=== PATIENT | male | born 1970 | race Two or more races ===

== ENCOUNTER 2018-03-30 16:34 | Inpatient (IN) | payer MEDICAID, OTHER ==
[~2018-03-30] VITALS: Ht 180.3 cm; Wt 87.0 kg
[2018-03-30] MEDS ORDERED: LORazepam 2 MG TABLET PO ONE (19:15)
[2018-03-30] MEDS ORDERED: HALOPERIDOL 5 MG TABLET PO ONE (19:15)
[2018-03-30] MEDS ORDERED: ZOLPIDEM TARTRATE 10 MG TABLET PO PRN (19:15)
[2018-03-30] MEDS ORDERED: DiphenhydrAMINE HCL 25 MG CAPSULE PO ONE (19:15)
[2018-03-30] MEDS ORDERED: LORazepam 2 MG TABLET PO PRN (19:15)
[2018-03-30] MEDS ORDERED: HALOPERIDOL 5 MG TABLET PO PRN (19:15)
[2018-03-30] MEDS ORDERED: HALOPERIDOL LACTATE 5 MG/ML VIAL IM ONE (19:30)
[2018-03-30] MEDS ORDERED: DiphenhydrAMINE HCL 50 MG/ML VIAL IM ONE (19:30)
[2018-03-30] MEDS ORDERED: LORazepam 2 MG/ML VIAL IM ONE (19:30)
[2018-03-30 21:10] LABS: APPEARANCE,URINE CLEAR (CLEAR); BILIRUBIN,URINE NEGATIVE (NEGATIVE); GLUCOSE, URINE (UA) NEGATIVE (NEGATIVE); KETONES,URINE NEGATIVE (NEGATIVE); LEUKOCYTE ESTERASE ,URINE NEGATIVE (NEGATIVE); NITRATE,URINE NEGATIVE (NEGATIVE); OCCULT BLOOD,URINE NEGATIVE (NEGATIVE); PROTEIN,URINE NEGATIVE (NEGATIVE); UROBILINOGEN,URINE 0.2 mg/dL (<=1.0)
[2018-03-31 00:40] VITALS: BP 126/80
[2018-03-31] MEDS ORDERED: LOPERAMIDE HCL 2 MG CAPSULE PO PRN (07:30)
[2018-03-31] MEDS ORDERED: ALBUTEROL SULFATE HFA 90 MCG/PUFF 8 GM INHALER IH PRN (07:30)
[2018-03-31] MEDS ORDERED: ACETAMINOPHEN 325 MG TABLET PO PRN (07:30)
[2018-03-31] MEDS ORDERED: IBUPROFEN 400 MG TABLET PO PRN (07:30)
[2018-03-31] MEDS ORDERED: MAGNESIUM HYDROXIDE SUSPENSION 30 ML UDCUP PO PRN (07:30)
[2018-03-31] MEDS ORDERED: ONDANSETRON HCL 4 MG TABLET PO PRN (07:30)
[2018-03-31] MEDS ORDERED: MAG HYDROX/AL HYDROX/SIMETH ES 30 ML SUSPENSION UDCUP PO PRN (07:30)
[2018-03-31] MEDS ORDERED: GuaiFENesin/D-METHORPHAN [SUGAR-FREE] 200-20MG/10 ML SYRUP UDCUP PO PRN (07:30)
[2018-03-31] MEDS ORDERED: DOCUSATE SODIUM 100 MG CAPSULE PO PRN (07:30)
[2018-03-31] MEDS ORDERED: PETROLATUM,WHITE 71 GM JELLY TP PRN (07:30)
[2018-03-31] MEDS ORDERED: CloNIDine HCL 0.1 MG TABLET PO PRN (07:30)
[2018-03-31 07:53] LABS: BASOPHILS % (AUTO) 1.1 % (0.0-2.0); EOSINOPHILS % (AUTO) 2.3 % (1.0-6.0); HEMATOCRIT 42.1 % (41-53); HEMOGLOBIN 14.3 g/dL (13.5-17.5); LYMPHOCYTES # (AUTO) 1.8 K/uL (1.0-4.8); LYMPHOCYTES % (AUTO) 21.6 % (22.0-44.0); MEAN CORPUSCULAR HEMOGLOBIN 31.8 pg (26.0-34.0); MEAN CORPUSCULAR HGB CONC 33.9 G/dL (31.0-37.0); MEAN CORPUSCULAR VOLUME 94 fL (80-100); MONOCYTES # (AUTO) 1.3 K/uL (0.1-1.0); MONOCYTES % (AUTO) 15.4 % (2.0-9.0); NEUTROPHILS % (AUTO) 59.6 % (40.0-70.0); PLATELET COUNT (AUTO) 311 K/uL (150-450); RED BLOOD CELL COUNT(AUTO) 4.49 MIL/uL (4.50-5.90); RED CELL DISTRIBUTION WIDTH 13.4 % (11.5-14.5)
[2018-03-31 08:34] LABS: ALANINE AMINOTRANSFERASE 26 U/L (12-78); ALBUMIN 3.6 g/dL (3.4-5.0); ALKALINE PHOSPHATASE 100 U/L (46-116); ANION GAP 7 mmol/L (8-16); ASPARTATE AMINOTRANSFERASE 25 U/L (15-37); BILIRUBIN,TOTAL 0.4 mg/dL (0.1-1.0); CALCIUM, TOTAL 9.2 mg/dL (8.8-10.5); CARBON DIOXIDE 30 mmol/L (22-29); CHLORIDE 106 mmol/L (98-107); CHOLESTEROL 163 mg/dL (131-200); CREATININE 0.91 mg/dL (0.60-1.30); FREE T4 (FREE THYROXINE) 0.72 ng/dL (0.76-1.46); GLOMERULAR FILTR. RATE CALC > 60 mL/min (>60); GLUCOSE,RANDOM 81 mg/dL (70-110); HDL CHOLESTEROL 41 mg/dL (40-60); LDL CHOL (CALC.) 108 mg/dL (0-130); POTASSIUM 4.7 mmol/L (3.5-5.1); SODIUM SERUM 143 mmol/L (136-145); THYROID STIMULATING HORMONE 2.95 uIU/mL (0.36-3.74); TOTAL PROTEIN, SERUM 6.7 g/dL (6.4-8.2); TRIGLYCERIDES 72 mg/dL (15-150); UREA NITROGEN, BLOOD 12 mg/dL (7-18)
[2018-03-31 08:38] LABS: HEMOGLOBIN A1C 5.5 % (4.5-6.2)
[2018-03-31 08:39] VITALS: BP 112/65
[2018-03-31] MEDS: RisperiDONE 0.5 MG TABLET PO SCH (16:19)
[2018-03-31 16:56] VITALS: BP 119/68
[2018-04-01 00:58] VITALS: BP 117/64
[2018-04-01] MEDS: RisperiDONE 0.5 MG TABLET PO SCH ×2 (08:45→16:35)
[2018-04-01 08:47] VITALS: BP 117/73
[2018-04-01 17:34] VITALS: BP 137/71
[2018-04-02] VITALS: BP 127/70
[2018-04-02] MEDS: RisperiDONE 0.5 MG TABLET PO SCH ×2 (08:03→16:04)
[2018-04-02 08:22] VITALS: BP 127/79
[2018-04-02 16:21] VITALS: BP 118/72
[2018-04-03 06:22] VITALS: BP 112/68
[2018-04-03 08:13] VITALS: BP 104/82
[2018-04-03] MEDS: RisperiDONE 0.5 MG TABLET PO SCH ×2 (08:50→16:53)
[2018-04-03 16:13] VITALS: BP 112/70
[2018-04-04 00:49] VITALS: BP 105/62
[2018-04-04 08:34] VITALS: BP 103/64
[2018-04-04] MEDS: RisperiDONE 0.5 MG TABLET PO SCH ×2 (08:56→16:44)
[2018-04-04 16:25] VITALS: BP 104/60
[2018-04-05 01:28] VITALS: BP 136/88
[2018-04-05 09:43] VITALS: BP 108/60
[2018-04-05] MEDS: RisperiDONE 0.5 MG TABLET PO SCH ×2 (09:44→16:35)
[2018-04-05 16:18] VITALS: BP 108/72
[2018-04-06 00:53] VITALS: BP 104/63
[2018-04-06 08:35] VITALS: BP 109/70
[2018-04-06] MEDS: RisperiDONE 0.5 MG TABLET PO SCH ×2 (08:35→16:39)
[2018-04-06 16:30] VITALS: BP 118/67
[2018-04-07 05:56] VITALS: BP 115/75
[2018-04-07 08:58] VITALS: BP 119/76
[2018-04-07] MEDS: RisperiDONE 0.5 MG TABLET PO SCH ×2 (09:18→17:15)
[2018-04-07 16:03] VITALS: BP 112/68
[2018-04-08 02:42] VITALS: BP 117/68
[2018-04-08 08:24] VITALS: BP 104/74
[2018-04-08] MEDS: RisperiDONE 0.5 MG TABLET PO SCH ×2 (08:49→16:14)
[2018-04-08 16:15] VITALS: BP 113/68
[2018-04-09 03:27] VITALS: BP 121/72
[2018-04-09 08:20] VITALS: BP 124/75
[2018-04-09] MEDS: RisperiDONE 0.5 MG TABLET PO SCH ×2 (08:40→16:03)
[2018-04-09 16:03] VITALS: BP 109/62
[2018-04-10 00:40] VITALS: BP 132/76
[2018-04-10 08:31] VITALS: BP 105/67
[2018-04-10] MEDS: RisperiDONE 0.5 MG TABLET PO SCH ×2 (09:01→17:38)
[2018-04-10 16:27] VITALS: BP 105/76
[2018-04-11 06:10] VITALS: BP 102/60
[2018-04-11] MEDS: RisperiDONE 0.5 MG TABLET PO SCH ×2 (08:14→17:11)
[2018-04-11 08:38] VITALS: BP 119/69
[2018-04-11 16:30] VITALS: BP 104/62
[2018-04-12 00:42] VITALS: BP 103/62
[2018-04-12 08:25] VITALS: BP 106/67
[2018-04-12] MEDS: BENZTROPINE MESYLATE 2 MG TABLET PO SCH ×2 (08:43→17:14)
[2018-04-12] MEDS: RisperiDONE 0.5 MG TABLET PO SCH ×2 (08:43→17:14)
[2018-04-12 16:04] VITALS: BP 112/77
[2018-04-13 00:29] VITALS: BP 116/64
[2018-04-13 08:11] VITALS: BP 126/74
[2018-04-13] MEDS: RisperiDONE 0.5 MG TABLET PO SCH ×2 (10:10→17:17)
[2018-04-13] MEDS: BENZTROPINE MESYLATE 2 MG TABLET PO SCH ×2 (10:10→17:13)
[2018-04-13 16:12] VITALS: BP 109/75
[2018-04-14 04:39] VITALS: BP 110/68
[2018-04-14 08:11] VITALS: BP 112/62
[2018-04-14] MEDS: RisperiDONE 0.5 MG TABLET PO SCH (09:00)
[2018-04-14] MEDS: BENZTROPINE MESYLATE 2 MG TABLET PO SCH (09:00)
[2018-04-14] MEDS ORDERED: RISP.5 PO (11:13)
[2018-04-14] MEDS ORDERED: BENZ2TAB10 PO (11:13)
== END 2018-04-14 13:20 | disposition home or self-care (01) | DRG 750 ==
LOC: EMS 16:36 → B2S 21:25
PROVIDERS: ADMIT Psychiatry & Neurology Psychiatry; ATTEND Psychiatry & Neurology Psychiatry
DX: F25.0 Schizoaffective disorder, bipolar type (principal); R45.850 Homicidal ideations; F41.9 Anxiety disorder, unspecified; Z53.20 Procedure and treatment not carried out because of patient's decision for unspecified reasons
CPT/HCPCS: 83036; 84436; 84439; 84443; 87081; 96372; J1200; J1630; J2060